=== PATIENT | male | born 1965 | race Caucasian/White ===

== ENCOUNTER 2017-02-06 16:12 | Emergency (ER) | payer OTHER ==
[2017-02-06 18:55] LABS: CREATININE 1.1 mg/dL (0.7-1.2); POTASSIUM 4.4 mmol/L (3.5-5.1)
[2017-02-06 19:09] LABS: BASOPHIL 0.5 % (0-2); EOSINOPHIL 2.3 % (0-5); HCT 49.1 % (42.0-52.0); HGB 16.7 g/dl (13.2-18.0); LYMPHOCYTE 31.4 % (15-48); MCH 29.9 pg (25.0-31.0); MONOCYTE 9.8 % (0-12); MPV 9.6 fL (6.0-9.5); PLT 265 K/uL (150-400); RBC 5.58 M/uL (4.70-6.00); RDW 12.9 % (11.5-14.0); WBC 8.8 K/uL (4.0-10.5)
== END 2017-02-06 20:19 | disposition home or self-care (01) ==
LOC: FER 16:12
PROVIDERS: Nurse Practitioner Family
DX: J06.9 Acute upper respiratory infection, unspecified (principal); I10 Essential (primary) hypertension; F17.210 Nicotine dependence, cigarettes, uncomplicated; Z79.899 Other long term (current) drug therapy
CPT/HCPCS: 36415; 71020; 80048; 85025; 94640

== ENCOUNTER 2017-02-14 00:44 | Emergency (ER) | payer OTHER ==
[2017-02-14 01:32] LABS: BASOPHIL 0.2 % (0-2); EOSINOPHIL 1.3 % (0-5); HCT 47.6 % (42.0-52.0); HGB 16.2 g/dl (13.2-18.0); LYMPHOCYTE 28.9 % (15-48); MCH 30.1 pg (25.0-31.0); MCV 88.5 fL (78.0-100.0); MONOCYTE 11.4 % (0-12); MPV 9.3 fL (6.0-9.5); NEUTROPHIL 58.2 % (41-80); PLT 293 K/uL (150-400); RBC 5.38 M/uL (4.70-6.00); RDW 13.3 % (11.5-14.0); WBC 14.9 K/uL (4.0-10.5)
[2017-02-14 01:50] LABS: ALBUMIN 3.9 g/dL (3.5-5.0); BILIRUBIN - TOTAL 0.3 mg/dL (0.1-1.0); CREATININE 0.9 mg/dL (0.7-1.2); GLOBULIN (CALCULATION) 2.4 g/dL (2.2-4.2); TOTAL PROTEIN 6.3 g/dL (6.4-8.3)
== END 2017-02-14 05:48 | disposition home or self-care (01) ==
LOC: FER 00:44
PROVIDERS: Emergency Medicine Emergency Medical Services
DX: J20.9 Acute bronchitis, unspecified (principal); R09.02 Hypoxemia; I10 Essential (primary) hypertension; F17.210 Nicotine dependence, cigarettes, uncomplicated; Z88.5 Allergy status to narcotic agent; Z79.51 Long term (current) use of inhaled steroids; Z79.899 Other long term (current) drug therapy
CPT/HCPCS: 36415; 36600; 71020; 71275; 80053; 82803; 84484; 85025; 85379; 93005; 94640; 96372; J0500; J1100; J1885; Q9967

== ENCOUNTER 2017-04-16 21:26 | Emergency (ER) | payer OTHER | END 2017-04-16 23:51 | disposition home or self-care (01) | LOC: FER 21:26 | DX: M54.41 Lumbago with sciatica, right side (principal); I10 Essential (primary) hypertension; F17.210 Nicotine dependence, cigarettes, uncomplicated; Z79.899 Other long term (current) drug therapy; Z98.890 Other specified postprocedural states | CPT/HCPCS: J1885 ==